=== PATIENT | male | born 1985 | race African-American/Black ===

== ENCOUNTER 2018-08-07 21:05 | Emergency (ER) | payer SELFPAY ==
[~2018-08-07] VITALS: Ht 185.4 cm; Wt 105.0 kg
[2018-08-08] MEDS ORDERED: IBUPROFEN 600MG TABLET PO ONE (00:30)
[2018-08-08 00:55] LABS: CLARITY URINE CLEAR (CLEAR); COLOR URINE YELLOW (YELLOW); KETONES URINE NEGATIVE (NEGATIVE); LEUKOCYTE ESTERASE URINE TRACE (NEGATIVE); NITRITE URINE NEGATIVE (NEGATIVE); OCCULT BLOOD URINE NEGATIVE (NEGATIVE); PH URINE 8.5 (4.5-8.0); PROTEIN URINE NEGATIVE (NEGATIVE); SPECIFIC GRAVITY URINE 1.021 (1.005-1.030)
[2018-08-08] MEDS ORDERED: LIDOCAINE HCL 1% 20ML VIAL (Pyxis) INJ INFIL ONE (03:15)
[2018-08-08] MEDS ORDERED: CEFTRIAXONE SODIUM 250 MG/VIAL IM ONE (03:15)
[2018-08-08 03:39] VITALS: BP 128/85
== END 2018-08-08 03:43 | disposition home or self-care (01) ==
LOC: ER 21:05
DX: N45.1 Epididymitis (principal); R03.0 Elevated blood-pressure reading, without diagnosis of hypertension
CPT/HCPCS: 76870; 81003; 93976; 96372; 99284; J0696; J3490